=== PATIENT | female | born 1980 | race Asian ===

== ENCOUNTER 2016-06-22 09:48 | Emergency (ER) | payer OTHER ==
[~2016-06-22] VITALS: Ht 149.9 cm; Wt 68.0 kg
[2016-06-22 11:00] LABS: PLATELET COUNT 289 K/uL (152-353)
[2016-06-22 11:11] LABS: POTASSIUM 3.7 mmol/L (3.6-5.2); SODIUM 131 mmol/L (136-145)
== END 2016-06-22 12:15 | disposition home or self-care (01) ==
LOC: ED 09:48
DX: B34.9 Viral infection, unspecified (principal)
CPT/HCPCS: 36415; 80053; 81000; 84702; 85027; 87081; 87804; 87880; 99283

== ENCOUNTER 2017-11-01 16:52 | Emergency (ER) | payer OTHER ==
[~2017-11-01] VITALS: Ht 149.9 cm; Wt 66.7 kg
[2017-11-01 18:05] LABS: PLATELET COUNT 322 K/uL (152-353)
[2017-11-01 18:10] LABS: POTASSIUM 3.5 mmol/L (3.6-5.2)
[2017-11-01 19:40] VITALS: BP 125/91; TEMP 98.4
== END 2017-11-01 19:40 | disposition home or self-care (01) ==
LOC: ED 16:52
DX: K59.09 Other constipation (principal); Z33.1 Pregnant state, incidental
CPT/HCPCS: 36415; 80053; 81000; 84702; 85027; 99284

== ENCOUNTER 2022-07-27 12:32 | Emergency (ER) | payer OTHER ==
[~2022-07-27] VITALS: Ht 149.9 cm; Wt 70.8 kg
[2022-07-27 12:40] VITALS: BP 142/97; TEMP 98.1
[2022-07-27 13:16] LABS: PLATELET COUNT 309 K/uL (152-353)
== END 2022-07-27 14:05 | disposition home or self-care (01) ==
LOC: ED 12:32
PROVIDERS: Family Medicine
DX: J01.80 Other acute sinusitis (principal); B97.89 Other viral agents as the cause of diseases classified elsewhere; Z20.822 Contact with and (suspected) exposure to COVID-19; F17.210 Nicotine dependence, cigarettes, uncomplicated
CPT/HCPCS: 81002; 85027; 87502; 87635; 99283; U0003